=== PATIENT | male | born 1955 | race Two or more races ===

== ENCOUNTER 2018-06-01 10:50 | Outpatient (CLI) | payer OTHER ==
[~2018-06-01 10:50] MED LIST: ASA81 MG PO; HYZAAR 100/25 T1 TAB PO
== END 2018-06-01 11:11 | disposition home or self-care (01) ==
LOC: TOM 10:50
DX: J32.8 Other chronic sinusitis (principal); J33.8 Other polyp of sinus

== ENCOUNTER → 2019-07-23 | Outpatient (CLI) | payer OTHER | END | disposition home or self-care (01) | LOC: MRI 13:02 | DX: M25.562 Pain in left knee (principal) | CPT/HCPCS: 73721 ==

== ENCOUNTER → 2019-11-12 | Outpatient (CLI) | payer OTHER | END | disposition home or self-care (01) | LOC: SONOGRAMA 13:07 → MAMO-SONO 13:15 | DX: N39.0 Urinary tract infection, site not specified (principal); N23 Unspecified renal colic ==

== ENCOUNTER 2019-12-24 08:56 | Outpatient (CLI) | payer OTHER | END 2019-12-24 09:01 | disposition home or self-care (01) | LOC: TOM 08:56 | DX: N20.1 Calculus of ureter (principal) ==